=== PATIENT | male | born 1970 | race Caucasian/White ===

== ENCOUNTER 2022-11-21 12:15 | Emergency (ER) | payer MEDICAID ==
[~2022-11-21] VITALS: Ht 193 cm; Wt 137.0 kg
[~2022-11-21 12:15] MED LIST: CITA20TA19 PO; LAM1 PO; RISP4 PO; TRAZ-252 PO
[2022-11-21] MEDS ORDERED: IBUPROFEN 600MG TABLET PO ONE (15:15)
[2022-11-21] MEDS ORDERED: METHOCARBAMOL 500MG TABLET PO ONE (15:30)
[2022-11-21] MEDS ORDERED: IBUP-2029 MT (15:32)
[2022-11-21] MEDS ORDERED: SODIUM CHLORIDE 0.9% 1,000 ML IV ONE (15:45)
[2022-11-21] MEDS ORDERED: KETOROLAC 30MG/ML VIAL IV ONE (15:45)
[2022-11-21 16:08] VITALS: BP 170/107
[2022-11-21 16:15] LABS: BASOPHILS % 0.5 % (0.0-2.0); EOSINOPHILS % 0.6 % (0.0-5.0); HEMATOCRIT. 45.9 % (42.0-52.0); LYMPHOCYTES % 16.6 % (20.0-50.0); MEAN CORPUSCULAR HEMOGLOBIN 30.2 pg (28.0-32.0); MEAN CORPUSCULAR VOLUME 86.4 fL (80.0-94.0); MEAN PLATELET VOLUME 10.9 fl (7.4-10.4); MONOCYTES % 8.7 % (2.0-8.0); NEUTROPHILS % 73.6 % (40.0-76.0); PLATELET 159 x1000/uL (130-400); RED BLOOD CELL COUNT 5.31 mill/uL (4.7-6.1); RED CELL DISTRIBUTION WIDTH 14.2 % (11.6-14.6)
[2022-11-21 16:16] LABS: CHLORIDE 100 mEq/L (98-107); PROTHROMBIN TIME 10.3 sec (9.6-11.0)
[2022-11-21 19:09] LABS: BG BASE EXCESS 0.3 mmol/L (-2.0-2.0); BG CARBOXYHEMOGLOBIN 2.4 % (0.5-1.5); BG DEOXYHEMOGLOBIN 4.3 % (0.0-5.0); BG FRACTION INSPIRED OXYGEN 21; BG HCO3 ACT 24.1 mmol/L (22.0-26.0); BG METHEMOGLOBIN 0.4 % (0.0-1.5); BG OXYGEN SATURATION 95.6 % (92.0-98.5); BG OXYHEMOGLOBIN 92.9 % (94.0-97.0); BG PCO2 36.7 mmHg (35.0-45.0); BG PH 7.435 (7.350-7.450); BG PO2 72.9 mmHg (75.0-100.0); BG SAMPLE SITE RIGHT RADIAL; BG TOTAL HEMOGLOBIN 16.4 g/dL (12.0-18.0); BG VENT MODE ROOM AIR
[2022-11-21] MEDS ORDERED: IOHEXOL-300 100 ML BOTTLE ONE (19:56)
[2022-11-21 22:28] LABS: CLARITY URINE CLEAR (CLEAR); COLOR URINE YELLOW (YELLOW); KETONES URINE TRACE (NEGATIVE); LEUKOCYTE ESTERASE URINE NEGATIVE (NEGATIVE); NITRITE URINE NEGATIVE (NEGATIVE); OCCULT BLOOD URINE NEGATIVE (NEGATIVE); PH URINE 5.5 (4.5-8.0); PROTEIN URINE 3+ (NEGATIVE); SPECIFIC GRAVITY URINE 1.096 (1.005-1.030)
== END 2022-11-21 21:57 | disposition home or self-care (01) ==
LOC: ER 12:31
DX: R10.13 Epigastric pain (principal); R10.11 Right upper quadrant pain; R07.81 Pleurodynia; F31.9 Bipolar disorder, unspecified; F20.9 Schizophrenia, unspecified; I10 Essential (primary) hypertension; Z88.8 Allergy status to other drugs, medicaments and biological substances
CPT/HCPCS: 36415; 36600; 71100; 74177; 80053; 81003; 82375; 82805; 83690; 85025; 85610; 96374; 99285; J1885; J7030; Q9967; Z7610; 96361